=== PATIENT | female | born 1960 | race Caucasian/White ===

== ENCOUNTER 2018-04-28 09:36 | Emergency (ER) | payer MEDICAID ==
[~2018-04-28] VITALS: Ht 154.9 cm; Wt 77.2 kg
[~2018-04-28 09:36] MED LIST: LISI20TA PO
[2018-04-28] MEDS ORDERED: METF500T7 PO (09:48)
[2018-04-28] MEDS ORDERED: AMLO2.5T3 PO (09:48)
[2018-04-28] MEDS ORDERED: BENA20 PO (09:48)
[2018-04-28 09:59] LABS: GLUCOSE,POINT OF CARE 189 MG/DL (70-110)
[2018-04-28 12:04] VITALS: BP 169/84
== END 2018-04-28 12:25 | disposition home or self-care (01) ==
LOC: EMS 09:38
DX: I10 Essential (primary) hypertension (principal); F17.210 Nicotine dependence, cigarettes, uncomplicated; E11.9 Type 2 diabetes mellitus without complications; E78.00 Pure hypercholesterolemia, unspecified; Z90.49 Acquired absence of other specified parts of digestive tract; Z88.5 Allergy status to narcotic agent; Z79.84 Long term (current) use of oral hypoglycemic drugs; Z79.899 Other long term (current) drug therapy
CPT/HCPCS: 99283; 99406

== ENCOUNTER 2018-07-27 23:48 | Emergency (ER) | payer MEDICAID ==
[~2018-07-27] VITALS: Ht 142.2 cm; Wt 77.3 kg
[~2018-07-27 23:48] MED LIST changes: +AMLO2.5T3 PO; +BENA20 PO; -LISI20TA PO; +METF500T7 PO
[2018-07-28 00:09] LABS: GLUCOSE,POINT OF CARE 207 MG/DL (70-110)
[2018-07-28 02:40] VITALS: BP 129/68
[2018-07-28] MEDS ORDERED: CefTRIAXone SODIUM 1 GM/VIAL IM ONE (03:00)
[2018-07-28] MEDS ORDERED: LIDOCAINE/PF 1% 2 ML VIAL IM ONE (03:00)
== END 2018-07-28 03:25 | disposition home or self-care (01) ==
LOC: EMS 23:49
DX: S90.211A Contusion of right great toe with damage to nail, initial encounter (principal); L60.0 Ingrowing nail; N61.1 Abscess of the breast and nipple; E11.9 Type 2 diabetes mellitus without complications; E78.00 Pure hypercholesterolemia, unspecified; I10 Essential (primary) hypertension; F17.210 Nicotine dependence, cigarettes, uncomplicated; Z79.84 Long term (current) use of oral hypoglycemic drugs; X58.XXXA Exposure to other specified factors, initial encounter; Y93.89 Activity, other specified; Y92.89 Other specified places as the place of occurrence of the external cause; Y99.8 Other external cause status
CPT/HCPCS: 82962; 96372; 99283; J0696; J3490

== ENCOUNTER 2020-06-25 15:21 | Emergency (ER) | payer MEDICAID ==
[~2020-06-25] VITALS: Ht 144.8 cm; Wt 75.0 kg
[~2020-06-25 15:21] MED LIST changes: -AMLO2.5T3 PO; +AMLO2.5T96 PO; -BENA20 PO; +BENA20TA11 PO; +METF-911 PO; -METF500T7 PO
[2020-06-25] MEDS ORDERED: IBUPROFEN 600 MG TABLET PO ONE (16:00)
[2020-06-25 16:21] VITALS: BP 141/84
== END 2020-06-25 16:48 | disposition home or self-care (01) ==
LOC: EMS 15:22
DX: M65.4 Radial styloid tenosynovitis [de Quervain] (principal); E11.9 Type 2 diabetes mellitus without complications; E78.00 Pure hypercholesterolemia, unspecified; I10 Essential (primary) hypertension; Z90.49 Acquired absence of other specified parts of digestive tract; F17.210 Nicotine dependence, cigarettes, uncomplicated

== ENCOUNTER 2022-04-05 14:31 | Emergency (ER) | payer MEDICAID ==
[~2022-04-05] VITALS: Ht 149.9 cm; Wt 170.0 kg
[~2022-04-05 14:31] MED LIST changes: -BENA20TA11 PO; +BENA20TA83 PO; +METF-81 PO; -METF-911 PO
[2022-04-05] MEDS ORDERED: ATEN-72 PO (14:58)
[2022-04-05] MEDS ORDERED: DULA0.75 SQ (14:58)
[2022-04-05 17:35] VITALS: BP 151/84
== END 2022-04-05 18:16 | disposition left against medical advice (07) ==
LOC: EMS 14:34
DX: N64.4 Mastodynia (principal); E11.9 Type 2 diabetes mellitus without complications; E78.00 Pure hypercholesterolemia, unspecified; E78.5 Hyperlipidemia, unspecified; F41.9 Anxiety disorder, unspecified; I10 Essential (primary) hypertension; Z90.89 Acquired absence of other organs
CPT/HCPCS: 71046; 82962; 99283

== ENCOUNTER 2022-11-19 08:18 | Emergency (ER) | payer MEDICAID ==
[~2022-11-19] VITALS: Ht 149.9 cm; Wt 77.3 kg
[~2022-11-19 08:18] MED LIST changes: +ATEN-72 PO; +DULA0.75 SQ
[2022-11-19] MEDS ORDERED: ATOR40TA28 PO (08:29)
[2022-11-19] MEDS ORDERED: SODIUM CHLORIDE 0.9% 1,000 ML IV ONE (08:30)
[2022-11-19] MEDS ORDERED: FAMOTIDINE 10 MG/ML 2 ML VIAL IVP ONE (08:30)
[2022-11-19] MEDS ORDERED: MAG HYDROX/AL HYDROX/SIMETH 30 ML SUSP UDCUP PO ONE (08:30)
[2022-11-19] MEDS ORDERED: ONDANSETRON HCL 4 MG/2 ML VIAL IVP ONE (08:30)
[2022-11-19] MEDS ORDERED: KETOROLAC TROMETHAMINE 30 MG/ML VIAL IVP ONE (08:30)
[2022-11-19 09:03] LABS: BASOPHILS % (AUTO) 0.1 % (0.0-2.0); EOSINOPHILS % (AUTO) 0.6 % (1.0-6.0); HEMOGLOBIN 12.9 g/dL (12.0-16.0); LYMPHOCYTES # (AUTO) 2.4 K/uL (1.0-4.8); LYMPHOCYTES % (AUTO) 17.6 % (22.0-44.0); MEAN CORPUSCULAR HEMOGLOBIN 29.3 pg (26.0-34.0); MEAN CORPUSCULAR VOLUME 86 fL (80-100); MONOCYTES # (AUTO) 1.1 K/uL (0.1-1.0); MONOCYTES % (AUTO) 8.3 % (2.0-9.0); NEUTROPHILS # (AUTO) 9.9 K/uL (1.8-7.7); NEUTROPHILS % (AUTO) 73.4 % (40.0-70.0); PLATELET COUNT (AUTO) 181 K/uL (150-450); RED BLOOD CELL COUNT(AUTO) 4.41 MIL/uL (4.00-5.20); RED CELL DISTRIBUTION WIDTH 13.6 % (11.5-14.5)
[2022-11-19 09:11] LABS: ANION GAP 12 mmol/L (8-16); CALCIUM, TOTAL 9.3 mg/dL (8.8-10.5); CARBON DIOXIDE 23 mmol/L (22-29); CHLORIDE 101 mmol/L (98-107); GLOMERULAR FILTR. RATE CALC > 60 mL/min (>60); GLUCOSE,RANDOM 108 mg/dL (70-110); SODIUM SERUM 136 mmol/L (136-145); UREA NITROGEN, BLOOD 32 mg/dL (7-18)
[2022-11-19 09:14] LABS: ALANINE AMINOTRANSFERASE 46 U/L (12-78); ALBUMIN 2.7 g/dL (3.4-5.0); ALKALINE PHOSPHATASE 131 U/L (46-116); ASPARTATE AMINOTRANSFERASE 37 U/L (15-37); BILIRUBIN,TOTAL 0.7 mg/dL (0.1-1.0); LIPASE 187 U/L (73-393); TOTAL PROTEIN, SERUM 7.5 g/dL (6.4-8.2)
[2022-11-19] MEDS ORDERED: POTASSIUM CHLORIDE 20 MEQ ER TABLET PO ONE (09:15)
[2022-11-19 12:09] LABS: APPEARANCE,URINE HAZY (CLEAR); BILIRUBIN,URINE NEGATIVE (NEGATIVE); GLUCOSE, URINE (UA) NEGATIVE (NEGATIVE); LEUKOCYTE ESTERASE ,URINE MODERATE (NEGATIVE); NITRATE,URINE NEGATIVE (NEGATIVE); OCCULT BLOOD,URINE TRACE (NEGATIVE); PH,URINE 6.5 (5.0-8.0); PROTEIN,URINE 30-70 mg/dL (NEGATIVE); SPECIFIC GRAVITIY, URINE 1.018 (1.003-1.030); UROBILINOGEN,URINE <=1.0 mg/dL (<=1.0)
[2022-11-19 12:16] LABS: RBC,URINE 0-2 /HPF (0-2)
[2022-11-19 12:17] LABS: BACTERIA,URINE Few /HPF (None Seen); FINE GRANULAR CASTS,URINE 0-2 /LPF (None Seen)
[2022-11-19] MEDS ORDERED: CEPH-558 PO (12:27)
[2022-11-19] MEDS ORDERED: ONDA-104 PO (12:27)
[2022-11-19] MEDS ORDERED: CEPHALEXIN MONOHYDRATE 500 MG CAPSULE PO ONE (12:30)
[2022-11-19 12:55] VITALS: BP 132/78
== END 2022-11-19 13:00 | disposition home or self-care (01) ==
LOC: EMS 08:19
DX: N39.0 Urinary tract infection, site not specified (principal); K52.9 Noninfective gastroenteritis and colitis, unspecified; E11.9 Type 2 diabetes mellitus without complications; E78.00 Pure hypercholesterolemia, unspecified; I10 Essential (primary) hypertension; F17.210 Nicotine dependence, cigarettes, uncomplicated; Z90.49 Acquired absence of other specified parts of digestive tract; Z88.5 Allergy status to narcotic agent
CPT/HCPCS: 99285; 74176; 96374; 76705; 96375; 96361; 80053; 81001; 83690; 84484; 85025; 36415; 93005; J3490; J1885; J2405; J7030